=== PATIENT | male | born 1985 | race Caucasian/White ===

== ENCOUNTER 2017-12-10 07:22 | Emergency (ER) | payer OTHER ==
[~2017-12-10] VITALS: Ht 182.9 cm; Wt 90.7 kg
[~2017-12-10 07:22] MED LIST: IBUPROFEN 800800 M1 PO; NOHOMEMEDICATIONS; ZOFRAN ODT4 MG PO
[2017-12-10 09:04] LABS: ABSOLUTE EOSINOPHILS 0.2 thou/uL (0.0-0.7); ABSOLUTE LYMPHOCYTES 1.9 thou/uL (0.8-5.3); ABSOLUTE MONOCYTES 0.5 thou/uL (0.0-1.2); ABSOLUTE NEUTROPHILS 3.3 thou/uL (1.6-8.1); BASOPHILS 0.6 %; EOSINOPHILS 3.1 %; HEMATOCRIT 40.6 % (42.0-52.0); HEMOGLOBIN 13.7 gm/dL (14.0-18.0); LYMPHOCYTES 32.2 %; MCH 29.8 pg (26.0-34.0); MCHC 33.6 g/dL (28.0-37.0); MCV 88.5 fL (80.0-100.0); NUCLEATED RBCS 0 /100WBC; PLATELET COUNT* 237 thou/uL (150-400); POLYS 55.1 %; RBC 4.59 mil/uL (4.50-6.00); RDW-CV 12.8 % (10.5-14.5); WBC 5.9 thou/uL (4.0-11.0)
[2017-12-10 09:11] LABS: CALCIUM 8.5 mg/dL (8.5-10.1); CREATININE 0.9 mg/dL (0.6-1.3); POTASSIUM 3.9 mmol/L (3.5-5.1)
[2017-12-10 09:16] LABS: ALBUMIN 3.5 g/dL (3.4-5.0); TOTAL BILIRUBIN 0.2 mg/dL (<0.1-1.0)
[2017-12-10 09:18] LABS: URINE BILIRUBIN NEGATIVE (Negative); URINE BLOOD NEGATIVE (Negative); URINE CLARITY CLEAR; URINE COLOR YELLOW; URINE GLUCOSE-RANDOM NEGATIVE (Negative); URINE KETONES NEGATIVE (Negative); URINE LEUKOCYTES-REFLEX NEGATIVE (Negative); URINE NITRITE-REFLEX NEGATIVE (Negative); URINE PROTEIN NEGATIVE (Negative); URINE SPECIFIC GRAVITY >= 1.030 (1.005-1.030); URINE UROBILINOGEN 0.2 E.U./dl (0.2-1.0)
[2017-12-10] MEDS ORDERED: IBUPROFEN 800800 M1 PO (10:02)
[2017-12-10] MEDS ORDERED: FLEXERIL PO (10:02)
[2017-12-10] MEDS ORDERED: NORCO 5-325 TA1 EACH PO (10:02)
[2017-12-10] MEDS ORDERED: PREDNISONE50 MG PO (10:02)
[2017-12-10 10:36] VITALS: BP 120/62
== END 2017-12-10 10:39 | disposition home or self-care (01) ==
LOC: M.ERS 07:22
PROVIDERS: Emergency Medicine Emergency Medical Services
DX: M54.5 Low back pain (principal)

== ENCOUNTER 2018-05-31 09:10 | Emergency (ER) | payer OTHER ==
[~2018-05-31] VITALS: Ht 182.9 cm; Wt 95.3 kg
[~2018-05-31 09:10] MED LIST changes: +FLEXERIL PO; +NORCO 5-325 TA1 EACH PO; +PREDNISONE50 MG PO
[2018-05-31] MEDS ORDERED: TESSALON PERLE100 MG PO (09:47)
[2018-05-31] MEDS ORDERED: PREDNISONE 20 M20 M1 PO (09:47)
[2018-05-31] MEDS ORDERED: ZPAK PO (09:47)
[2018-05-31 10:00] VITALS: BP 117/69
== END 2018-05-31 10:00 | disposition home or self-care (01) ==
LOC: M.ERS 09:10
DX: J40 Bronchitis, not specified as acute or chronic (principal)